=== PATIENT | female | born 1990 | race Caucasian/White ===

== ENCOUNTER 2017-10-30 10:12 | Emergency (ER) | payer OTHER ==
[2017-10-30 10:27] VITALS: BP 104/64; PULSE 69; RESP 20; TEMP 98.2
--- NOTE | 2017-10-30 11:07 | ED ---
General Adult HPI - General Chief complaint: Extremity Injury, Lower Stated complaint: R ankle pain Time Seen by Provider: 10/30/17 10:38 Source: patient, RN notes reviewed, old records reviewed Mode of arrival: ambulatory Limitations: no limitations - History of Present Illness Initial comments: This is a 27-year-old female the ER for evaluation. 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 Patient states she's had significant right ankle pain throughout the day and is significantly worsened since working yesterday. She states about a week and a half ago she did sprain her right ankle symptoms improved and then pain started again tonight. Denies any recurrent trauma - Related Data Home Medications Medication Instructions Recorded Confirmed Biotin 10,000 mcg PO DAILY 10/30/17 10/30/17 Calcium Carbonate [Calcium] 1,200 mg PO DAILY 10/30/17 10/30/17 Allergies Allergy/AdvReac Type Severity Reaction Status Date / Time No Known Allergies Allergy Verified 10/30/17 10:27 Review of Systems ROS Statement: Those systems with pertinent positive or pertinent negative responses have been documented in the HPI. ROS Other: All systems not noted in ROS Statement are negative. Past Medical History Past Medical History: No Reported History History of Any Multi-Drug Resistant Organisms: None Reported Past Surgical History: No Surgical Hx Reported Past Psychological History: No Psychological Hx Reported Smoking Status: Never smoker Past Alcohol Use History: Occasional Past Drug Use History: None Reported General Exam - General Exam Comments Initial Comments: Right ankle tenderness, full range of motion, good pulses Limitations: no limitations General appearance: alert, in no apparent distress Head exam: Present: atraumatic, normocephalic, normal inspection Eye exam: Present: normal appearance, PERRL, EOMI. Absent: scleral icterus, conjunctival injection, periorbital swelling ENT exam: Present: normal exam, mucous membranes moist Neck exam: Present: normal inspection. Absent: tenderness, meningismus, lymphadenopathy Respiratory exam: Present: normal lung sounds bilaterally. Absent: respiratory distress, wheezes, rales, rhonchi, stridor Cardiovascular Exam: Present: regular rate, normal rhythm, normal heart sounds. Absent: systolic murmur, diastolic murmur, rubs, gallop, clicks GI/Abdominal exam: Present: soft, normal bowel sounds. Absent: distended, tenderness, guarding, rebound, rigid Extremities exam: Present: normal inspection, full ROM, normal capillary refill. Absent: tenderness, pedal edema, joint swelling, calf tenderness Back exam: Present: normal inspection Neurological exam: Present: alert, oriented X3, CN II-XII intact Psychiatric exam: Present: normal affect, normal mood Skin exam: Present: warm, dry, intact, normal color. Absent: rash Course Vital Signs 10/30/17 10:23 Temperature 98.2 F Pulse Rate 69 Respiratory 20 Rate Blood Pressure 104/64 O2 Sat by Pulse 99 Oximetry - Reevaluation(s) Reevaluation #1: 10/30/17 11:06 Patient is able to bear weight with no acute distress Medical Decision Making - Medical Decision Making 27 female the ER with right ankle pain. Patient presents today with right ankle sprain. X-ray negative. Patient encouraged rest ice Tylenol, Motrin and elevation. - Radiology Data Radiology results: report reviewed (X-ray right ankle is negative for acute disease), image reviewed Disposition Clinical Impression: Right ankle sprain Disposition: HOME SELF-CARE Condition: Good Instructions: Ankle Sprain (ED) Is patient prescribed a controlled substance at d/c from ED?: No Referrals: Sky Onofre MD [Primary Care Provider] - 1-2 days
--- NOTE | 2017-10-30 11:23 | XR ---
EXAMINATION TYPE: XR ankle complete RT , 3 VIEWS DATE OF EXAM ORDERED: 10/30/2017 HISTORY: Pain. COMPARISON: None. FINDINGS: No fracture, dislocation or joint effusion is seen. IMPRESSION: NO ACUTE OSSEOUS LESION.
== END 2017-10-30 12:12 | disposition home or self-care (01) ==
LOC: EC 10:12
DX: S93.401A Sprain of unspecified ligament of right ankle, initial encounter (principal); X50.1XXA Overexertion from prolonged static or awkward postures, initial encounter; Y92.009 Unspecified place in unspecified non-institutional (private) residence as the place of occurrence of the external cause
CPT/HCPCS: 99284

== ENCOUNTER → 2020-11-26 | Outpatient (CLI) | payer OTHER ==
[2020-11-26 14:56] LABS: Basophils # (A) 0.1 k/uL (0-0.2); Basophils % (A) 1 %; Eosinophils # (A) 0.1 k/uL (0-0.7); Eosinophils % (A) 1 %; HCT 45.8 % (34.0-46.0); HGB 15.2 gm/dL (11.4-16.0); Lymphocytes # (A) 2.4 k/uL (1.0-4.8); Lymphocytes % (A) 33 %; MCHC 33.1 g/dL (31.0-37.0); MCV 96.7 fL (80.0-100.0); Mean Platelet Volume 8.3; Monocytes # (A) 0.5 k/uL (0-1.0); Monocytes % (A) 7 %; Neutrophils # (A) 4.1 k/uL (1.3-7.7); Neutrophils % (A) 56 %; Platelet Count 208 k/uL (150-450); RBC 4.74 m/uL (3.80-5.40); RDW 13.1 % (11.5-15.5); WBC 7.3 k/uL (3.8-10.6)
== END | disposition home or self-care (01) ==
LOC: LABPAT 14:21
PROVIDERS: ATTEND Obstetrics & Gynecology Obstetrics
DX: Z01.812 Encounter for preprocedural laboratory examination (principal)
CPT/HCPCS: 36415; 85025

== ENCOUNTER 2020-12-09 10:10 | Day surgery (SDC) | payer OTHER ==
--- NOTE | 2020-12-09 10:01 | P.HPOB ---
History of Present Illness H&P Date: 12/09/20 Chief Complaint: Undesired fertility This is a 30-year-old 0 para 0 that presents for permanent sterilization with laparoscopic tubal ligation with Filshie clips. Patient currently notes irregular cycles secondary to Depo-Provera use. Patient states she does not de sire , children therefore is requesting permanent sterilization. Review of Systems Constitutional: Denies fatigue, Denies fever Ears, nose, mouth and throat: Denies headache Cardiovascular: Denies leg edema Respiratory: Denies dyspnea Gastrointestinal: Denies constipation, Denies diarrhea, Denies nausea, Denies vomiting Genitourinary: Denies Past Medical History Past Medical History: No Reported History, GERD/Reflux Additional Past Medical History / Comment(s): MIGRAINES (HAS EAR PIERCING PROPHYLACTICALLY). History of Any Multi-Drug Resistant Organisms: None Reported Past Surgical History: No Surgical Hx Reported Past Anesthesia/Blood Transfusion Reactions: Motion Sickness Additional Past Anesthesia/Blood Transfusion Reaction / Comment(s): HAS NEVER HAD ANESTHESIA Past Psychological History: Anxiety Smoking Status: Never smoker Past Alcohol Use History: Occasional Past Drug Use History: None Reported - Past Family History Mother Family Medical History: Unable to Obtain Medications and Allergies Home Medications Medication Instructions Recorded Confirmed Type Biotin 10,000 mcg PO DAILY 10/30/17 12/03/20 History Calcium Carbonate [Calcium] 1,200 mg PO DAILY 10/30/17 12/03/20 History Sertraline [Zoloft] 25 mg PO QAM 12/03/20 12/03/20 History medroxyPROGESTERone [Depo-Provera] 1 ml IM Q90D 12/03/20 12/03/20 History traZODone HCL [TraZODone HCl] 50 mg PO HS 12/03/20 12/03/20 History Allergies Allergy/AdvReac Type Severity Reaction Status Date / Time No Known Allergies Allergy Verified 12/03/20 14:44 Exam Osteopathic Statement: *. No significant issues noted on an osteopathic structural exam other than those noted in the History and Physical/Consult. 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 Lower extremities without edema Assessment and Plan (1) Family planning Status: Acute Code(s): Z30.09 - ENCOUNTER FOR OTH GENERAL CNSL AND ADVICE ON CONTRACEPTION SNOMED Code(s): 602366092 Plan: 30-year-old 0 that presents for laparoscopic tubal ligation. Patient is counseled on all options of long-term contraception including , IUD, continuation of her Depo-Provera, oral contraceptive pills or NuvaRing. Patient declines all options and states she wishes permanent sterilization. Marie reviewed of the procedure along with failure rates. Patient states understanding and wishes to proceed. We'll proceed with colorist scope a tubal ligation with Filshie clips.
[~2020-12-09 10:10] MED LIST: DEXAMETHASONE SOD PHOSPHATE 4 MG/ML 1 ML VIAL IV ONE; HYDROmorphone 0.5 MG/0.5 ML SYRINGE IVP PRN; ONDANSETRON 4 MG/2 ML VIAL IVP ONE; Pre Op ABX Message 1 EACH MISC MISCELLANE ONE
[2020-12-09 11:05] VITALS: RESP 16
[2020-12-09] MEDS: LACTATED RINGERS 1,000 ML IV SCH ×2 (11:17→14:22)
[2020-12-09] MEDS ORDERED: SCOPOLAMINE 1.5MG/72HR PATCH TRANSDERM ONE (11:18)
[2020-12-09] MEDS ORDERED: MIDAZOLAM 2 MG/2 ML VIAL ONE (11:59)
[2020-12-09] MEDS ORDERED: fentaNYL (PF) 50 MCG/ML 2 ML AMP ONE (11:59)
[2020-12-09] MEDS ORDERED: HYDROmorphone (PF) 1 MG/ML ONE (11:59)
[2020-12-09] MEDS ORDERED: KETOROLAC 15 MG/ML 1 ML VIAL ONE (11:59)
[2020-12-09] MEDS ORDERED: PROPOFOL 10 MG/ML 20 ML VIAL IV ONE (11:59)
[2020-12-09] MEDS ORDERED: SUCCINYLCHOLINE CHLORIDE 100 MG/5 ML SYR IV ONE (11:59)
[2020-12-09] MEDS ORDERED: LIDOCAINE 1% INJ 10MG/ML (20 ML MDV) ONE (11:59)
[2020-12-09] MEDS ORDERED: BUPIVACAINE (PF) 0.25% 30 ML VIAL SQ ONE ×2 (12:20)
[2020-12-09] MEDS ORDERED: LIDOCAINE 2% GEL 30 ML TUBE TOPICAL ONE (12:22)
[2020-12-09] MEDS ORDERED: FERRIC SUBSULFATE (MONSELS) JAR TOPICAL ONE (12:37)
--- NOTE | 2020-12-09 12:51 | P.OP ---
Date of Procedure: 12/09/20 Preoperative Diagnosis: Undesired fertility, family planning Postoperative Diagnosis: Same Procedure(s) Performed: Laparoscopic tubal ligation with Filshie clips, repair of cervical laceration Anesthesia: GETA Surgeon: Aarti Putnam Estimated Blood Loss (ml): 10 IV fluids (ml): 200 Urine output (ml): 50 Pathology: none sent Condition: stable Disposition: PACU Indications for Procedure: Patient request Operative Findings: Normal pelvic anatomy is appreciated Description of Procedure: Patient was taken back to the operating suite where general anesthesia was obtained without difficulty by the anesthesia department. She was then prepped and draped in the normal sterile fashion in the dorsal lithotomy position. A red rubber catheter was used to drain the bladder clear yellow urine. Speculum was placed the anterior lip of the cervix is visualized grasped with a single- tooth tenaculum and an acorn uterine made pillar was advanced into the cervix as a means to miniplate the uterus throughout the procedure. The speculum was then removed. Attention was then turned the patient's abdomen where in the umbilical fold a small skin incision is made. Through this incision the Veress needles placed, once the Veress needle was deemed to be in the appropriate position with a drop of CO2 pressure with insufflation of CO2 gas CO2 insufflation was allowed to occur. Approximately 3 L of CO2 gas were used to obtain pneumoperitoneum. At this time a 5 mm trocar and sleeve with the laparoscope in place was placed through the skin incision toward the pneumoperitoneum under direct visualization. The above-noted findings are visualized. An additional port site is placed in the left mid abdomen under direct visualization, this is an 8 mm port. The Filshie clip applicator is then placed through the lateral incision the left fallopian tube was grasped and crushed with the clip according to orientation and mobility instructor's instructions, this was then repeated on the opposite side. H emostasis was appreciated on bilateral fallopian tubes. Pictures were taken and instruments were removed. The skin incisions were closed with 4-0 Vicryl in a subarticular fashion. Steri-Strips and sterile dressings were applied. Attention then turned the patient's vaginal vault where the single-tooth tenaculum was taken off of the anterior lip of the cervix and the acorn uterine manipulator was removed from the cervix as well. Bleeding was noted from a small cervical laceration from the single-tooth tenaculum was repaired with a [id number] suture of 3-0 Rapide. Hemostasis was appreciated. A small amount of Monsel's was placed in addition for hemostasis. All counts were noted to be correct 2 at the end of the procedure. Patient tolerated procedure well and was taken the recovery room awake in stable condition.
[2020-12-09 12:54] VITALS: TEMP 96.8
[2020-12-09] MEDS ORDERED: ONDANSETRON 4 MG/2 ML VIAL ONE (14:15)
[2020-12-09] MEDS ORDERED: ONDANSETRON 4 MG/2 ML VIAL IVP ONE (14:18)
[2020-12-09 15:48] VITALS: BP 103/61; PULSE 55
== END 2020-12-09 15:52 | disposition home or self-care (01) ==
LOC: OR 10:10
PROVIDERS: ATTEND Obstetrics & Gynecology Obstetrics
DX: Z30.2 Encounter for sterilization (principal); F41.9 Anxiety disorder, unspecified; Z79.899 Other long term (current) drug therapy
CPT/HCPCS: 81025; 58671; J2250; J1100; J2405; J2001; J3010; J1170 ×2; J1885; J0330; J2704

== ENCOUNTER 2022-01-28 14:07 | Emergency (ER) | payer OTHER ==
[2022-01-28 14:14] VITALS: RESP 18
[2022-01-28] MEDS ORDERED: HYDROcodone/APAP 5-325MG 1 EACH TAB PO STA (15:19)
[2022-01-28] MEDS ORDERED: LIDOCAINE 1% INJ 10MG/ML (30 ML VIAL-PF) SQ ONE (16:24)
--- NOTE | 2022-01-28 16:33 | CT ---
EXAMINATION TYPE: CT pelvis w con DATE OF EXAM: 01/28/2022 COMPARISON: None HISTORY: pelvic pain CT DLP: 618.5 mGycm CONTRAST: CT scan of the pelvis is performed without Oral Contrast and with IV Contrast, patient injected with 100 mL of Isovue 300. FINDINGS: BOWEL: Visualized bowel loops appear to be of normal caliber. GENITAL ORGANS: Tubal ligation clips noted. Uterus is free of obvious mass. No ovarian masses or adn exal masses seen. No evidence for free fluid. LYMPH NODES: No greater than 1cm abdominal or pelvic lymph nodes are appreciated. AORTA: No significant abnormality. OSSEOUS STRUCTURES: No significant abnormality is seen. OTHER: There is inflammatory phlegmon noted in the right perirectal region and inferior right labia w ithout a drainable component. Area of inflammatory change measures 3.5 x 1.7 cm. IMPRESSION: 1. Right perirectal phlegmon without drainable abscess. Associated cellulitis.
[2022-01-28] MEDS ORDERED: metroNIDAZOLE 500 MG TAB PO STA (16:46)
[2022-01-28] MEDS ORDERED: SULFAMETHOX-TMP 800-160MG 1 EACH TAB PO STA (16:46)
--- NOTE | 2022-01-28 16:53 | ED ---
Skin/Abscess/FB HPI - General Chief complaint: Skin/Abscess/Foreign Body Stated complaint: female abcess Time Seen by Provider: 01/28/22 14:34 Source: patient, RN notes reviewed Mode of arrival: ambulatory Limitations: no limitations - History of Present Illness Initial comments: This is a 31-year-old female who presents to the emergency department for a labial abscess. States that this been present for approximately 4 days and is increasing in pain. She started to notice drainage yesterday, which has since persisted. Denies any fevers or chills. She saw her COMMERCIAL PORTFOLIO MANAGER, Dr. Hilliard at [facility], who advised she come to the emergency department in the event general surgery needed to be involved due to the size of the abscess. She is not currently on any antibiotics. He has no history of cysts in the past. Denies any fevers, chills, sore throat, cough, dyspnea, chest pain, palpitations, abdominal pain, nausea, vomiting, diarrhea, back pain, or headaches. MD complaint: abscess/boil Onset/Timin -: days(s) Location: buttocks, genitals - Related Data Home Medications Medication Instructions Recorded Confirmed Biotin 10,000 mcg PO DAILY 10/30/17 12/03/20 Calcium Carbonate [Calcium] 1,200 mg PO DAILY 10/30/17 12/03/20 Sertraline [Zoloft] 25 mg PO QAM 12/03/20 12/09/20 medroxyPROGESTERone [Depo-Provera] 1 ml IM Q90D 12/03/20 12/03/20 traZODone HCL [TraZODone HCl] 50 mg PO HS 12/03/20 12/09/20 Previous Rx's Medication Instructions Recorded HYDROcodone/APAP 5-325MG [Holder 1 tab PO Q6HR PRN 3 Days #12 tab 01/28/22 5-325] Ondansetron Odt [Zofran Odt] 4 mg PO Q8HR PRN #15 tab 01/28/22 Sulfamethox-Tmp 800-160Mg [Bactrim 1 tab PO Q12HR 10 Days #20 tab 01/28/22 DS 800-160 mg] metroNIDAZOLE [Flagyl] 500 mg PO TID 10 Days #30 tab 01/28/22 predniSONE 50 mg PO DAILY 5 Days #5 tablet 01/28/22 Allergies Allergy/AdvReac Type Severity Reaction Status Date / Time peanut Allergy Nausea & Verified 01/28/22 14:14 Vomiting Review of Systems ROS Statement: Those systems with pertinent positive or pertinent negative responses have been documented in the HPI. ROS Other: All systems not noted in ROS Statement are negative. Past Medical History Past Medical History: No Reported History History of Any Multi-Drug Resistant Organisms: None Reported Past Surgical History: No Surgical Hx Reported Additional Past Surgical History / Comment(s): tubal/clamp Past Psychological History: Anxiety, Depression Smoking Status: Vaper Past Alcohol Use History: Occasional Past Drug Use History: Marijuana General Exam Limitations: no limitations General appearance: alert, in no apparent distress Head exam: Present: atraumatic, normocephalic, normal inspection Respiratory exam: Present: normal lung sounds bilaterally. Absent: respiratory distress, wheezes, rales, rhonchi, stridor Cardiovascular Exam: Present: regular rate, normal rhythm, normal heart sounds. Absent: systolic murmur, diastolic murmur, rubs, gallop, clicks External exam: Present: other (Firm area of induration on the inferior aspect of the right labia and perirectal region measuring approximately 4cm. Multiple punctate areas with minor active purulent drainage.) Neurological exam: Present: alert, oriented X3, CN II-XII intact Psychiatric exam: Present: normal affect, normal mood Skin exam: Present: warm, dry Course Vital Signs 01/28/22 01/28/22 14:09 17:36 Temperature 98.5 F 98.1 F Pulse Rate 116 H 74 Respiratory 18 18 Rate Blood Pressure 117/78 101/70 O2 Sat by Pulse 98 99 Oximetry Medical Decision Making - Medical Decision Making This is a 31-year-old female who presents to the emergency department for a labial abscess. Computed tomography scan of the pelvis was obtained for better evaluation of this abscess. This was identified as a Phlegmon without a drainable abscess and associated cellulitis. Findings discussed with the patient. Advised that this cannot be drained due to the lack of a confined abscess. Prescription for Bactrim and Flagyl provided to cover for both MRSA and anaerobic bacteria due to the purulent component and the location of the infection. First doses administered in the emergency department. 5 day course of prednisone and Holder provided as well. Advised to take the Holder sparingly when her pain is the most severe and to avoid driving or operating machinery when taking this. She was also given a prescription for Zofran in the event any of these medications cause nausea and vomiting. Advised warm sits baths and using a donut pillow to avoid putting pressure on that area. She will follow up with her COMMERCIAL PORTFOLIO MANAGER this week for reevaluation of symptoms. Return precautions reviewed in depth, the patient is instructed to return to the emergency department with any new, worsening, or concerning symptoms. Patient verbalized understanding. This case was discussed in detail with the attending ED physician. Presentation, findings, and treatment plan discussed in detail as well. - Radiology Data Radiology results: report reviewed, image reviewed Disposition Clinical Impression: Phlegmonous cellulitis Disposition: HOME SELF-CARE Instructions (If sedation given, give patient instructions): Cellulitis (ED) Additional Instructions: Return to the emergency department with any new, worsening, or concerning sympt oms. Take both antibiotics as prescribed for 10 days. Take the prednisone daily for 5 days. The Zofran can be used as needed for any nausea and vomiting that may occur from the antibiotics. Take the Holder very sparingly when your pain is the most severe. Try using a donut pillow to take pressure off of the area and take warm sitz baths and apply warm compresses. Follow up with your primary care provider or COMMERCIAL PORTFOLIO MANAGER in 1-2 days. Prescriptions: Sulfamethox-Tmp 800-160Mg [Bactrim DS 800-160 mg] 1 tab PO Q12HR 10 Days #20 tab metroNIDAZOLE [Flagyl] 500 mg PO TID 10 Days #30 tab HYDROcodone/APAP 5-325MG [Holder 5-325] 1 tab PO Q6HR PRN 3 Days #12 tab PRN Reason: Pain predniSONE 50 mg PO DAILY 5 Days #5 tablet Ondansetron Odt [Zofran Odt] 4 mg PO Q8HR PRN #15 tab PRN Reason: Nausea And Vomiting Is patient prescribed a controlled substance at d/c from ED?: No Referrals: None,Stated [Primary Care Provider] - 1-2 days
[2022-01-28 17:39] VITALS: BP 101/70; PULSE 74; TEMP 98.1
== END 2022-01-28 17:39 | disposition home or self-care (01) ==
LOC: EC 14:07
DX: L03.90 Cellulitis, unspecified (principal); F41.9 Anxiety disorder, unspecified; F32.A Depression, unspecified; F17.290 Nicotine dependence, other tobacco product, uncomplicated; F12.90 Cannabis use, unspecified, uncomplicated; Z91.010 Allergy to peanuts; Z79.899 Other long term (current) drug therapy
CPT/HCPCS: 72193; 99283; Q9967